=== PATIENT | male | born 1945 | race Caucasian/White ===

== ENCOUNTER 2018-07-09 14:28 | Outpatient (CLI) | payer MEDICARE, OTHER | END 2018-07-09 14:29 | disposition critical access hospital (66) | LOC: EMS 14:28 | PROVIDERS: ATTEND Surgery | DX: R55 Syncope and collapse (principal); R10.9 Unspecified abdominal pain | CPT/HCPCS: A0425; A0427 ==

== ENCOUNTER 2018-07-09 14:44 | Inpatient (IN) | payer MEDICARE, OTHER ==
[2018-07-09] MEDS ORDERED: SODIUM CHLORIDE 0.9% 1,000 ML IV ONE (14:52)
--- NOTE | 2018-07-09 14:57 | ED Physician Documentation ---
PD HPI SYNCOPE - Stated complaint Stated Complaint: SYNCOPE - Chief complaint Chief Complaint: Abd Pain - History obtained from History obtained from: Patient, EMS - History of Present Illness Witnessed: Witnessed (72-year-old gentleman with atrial fibrillation on warfarin who works at [employer]. Reportedly he started to slur his words and then had 2 minutes of syncope. He scratched his abdominal wall and hand. He does not remember any of this. He was brought in by ambulance. On my evaluation his complaints include lower abdominal cramping which is severe and if he feeling of needing to have And imminent bowel movements. He denies chest pain or trouble breathing.) Review of Systems Ten Systems: 10 systems reviewed and negative Constitutional: denies: Fever, Chills Ears: denies: Loss of hearing, Ear pain Nose: denies: Rhinorrhea / runny nose, Congestion Throat: denies: Sore throat Cardiac: denies: Chest pain / pressure, Palpitations Respiratory: denies: Dyspnea PD PAST MEDICAL HISTORY - Past Medical History Past Medical History: Yes Cardiovascular: Hypertension, Atrial fibrillation Neuro: TIA - Present Medications Home Medications: Ambulatory Orders Medication Instructions Recorded Confirmed Fluticasone Propionate 07/09/18 Lisinopril 20 mg PO DAILY 07/09/18 07/09/18 Warfarin [Coumadin] 07/09/18 - Allergies Allergies/Adverse Reactions: Allergies Allergy/AdvReac Type Severity Reaction Status Date / Time No Known Drug Allergies Allergy Verified 07/09/18 14:51 - Living Situation Living Situation: reports: With spouse/s.o. - Social History Does the pt smoke?: No Does the pt drink ETOH?: No Does the pt have substance abuse?: No - Family History Family history: reports: Non contributory PD ED PE NORMAL - Vitals Vital signs reviewed: Yes - General General: Alert and oriented X 3, Other (He is pale, sweaty, and ill-appearing) - HEENT HEENT: PERRL, EOMI - Neck Neck: Supple, no meningeal sign, No bony TTP - Cardiac Cardiac: RRR, No murmur, Strong equal pulses (Equal femoral pulses, equal radial pulses and roughly equivalent upper extremity blood pressures per the nurse.) - Respiratory Respiratory: No respiratory distress, Clear bilaterally - Abdomen Abdomen: Normal bowel sounds, Soft, Non tender, Other (Bedside ultrasound demonstrates no clear AAA.) - Rectal Rectal: Other (Had lrg BM here about 1525, brown, trace guaiac positive (not strong), QC pass) - Back Back: No CVA TTP, No spinal TTP - Extremities Extremities: No edema, No calf tenderness / cord - Neuro Neuro: Alert and oriented X 3, Normal speech - Psych Psych: Normal mood, Normal affect Results - Vitals Vitals: Vital Signs - 24 hr 07/09/18 07/09/18 07/09/18 14:47 14:51 15:04 Temperature 36.5 C Heart Rate 66 64 Respiratory 18 20 Rate Blood Pressure 118/70 133/73 H 117/60 O2 Saturation 93 95 07/09/18 07/09/18 07/09/18 15:30 16:46 17:00 Temperature Heart Rate 64 70 67 Respiratory 17 18 18 Rate Blood Pressure 131/82 H 147/91 H 120/53 L O2 Saturation 99 99 98 07/09/18 07/09/18 07/09/18 17:15 17:27 17:30 Temperature 37.5 C 37.5 C 37.5 C Heart Rate 63 95 65 Respiratory 20 20 17 Rate Blood Pressure 148/81 H 143/79 H 142/81 H O2 Saturation 100 07/09/18 17:35 Temperature 37.3 C Heart Rate 65 Respiratory 17 Rate Blood Pressure 142/81 H O2 Saturation Oxygen O2 Source Nasal cannula Oxygen Flow Rate 4 - EKG (time done) 1451 Rate: Rate (enter#) (60) Rhythm: NSR Max: Normal Intervals: Normal RI QRS: Normal Ischemia: Non specific changes Compare to prior EKG: Old EKG unavailable Computer interpretation: Agree with computer - Labs Labs: Laboratory Tests 07/09/18 07/09/18 07/09/18 14:55 14:55 14:55 WBC 7.6 RBC 4.61 L Hgb 14.8 Hct 44.1 MCV 95.7 H MCH 32.0 H MCHC 33.5 RDW 13.2 Plt Count 196 MPV 8.2 Neut # (Auto) 3.9 Lymph # (Auto) 2.7 [place] # (Auto) 0.6 Eos # (Auto) 0.3 Baso # (Auto) 0.1 Absolute Nucleated RBC 0.00 Nucleated RBC % 0.0 PT 29.0 H INR 2.6 H APTT 22.2 L Sodium 137 Potassium 3.7 Chloride 104 Carbon Dioxide 21 Anion Gap 12.0 BUN 22 H Creatinine 0.9 Estimated GFR (MDRD) 83 L Glucose 143 H Lactic Acid Calcium 9.4 Total Bilirubin 1.3 H AST 24 ALT 21 Alkaline Phosphatase 68 Total Creatine Kinase 97 CK-MB (CK-2) Troponin I Total Protein 7.3 Albumin 4.3 Globulin 3.0 Albumin/Globulin Ratio 1.4 Lipase 24 Ethyl Alcohol < 5.0 Blood Type Blood Type Recheck Antibody Screen 07/09/18 07/09/18 07/09/18 14:55 14:55 15:09 WBC RBC Hgb Hct MCV MCH MCHC RDW Plt Count MPV Neut # (Auto) Lymph # (Auto) [place] # (Auto) Eos # (Auto) Baso # (Auto) Absolute Nucleated RBC Nucleated RBC % PT INR APTT Sodium Potassium Chloride Carbon Dioxide Anion Gap BUN Creatinine Estimated GFR (MDRD) Glucose Lactic Acid 1.7 Calcium Total Bilirubin AST ALT Alkaline Phosphatase Total Creatine Kinase CK-MB (CK-2) 2.7 Troponin I < 0.04 Total Protein Albumin Globulin Albumin/Globulin Ratio Lipase Ethyl Alcohol Blood Type O POSITIVE Blood Type Recheck Antibody Screen NEGATIVE 07/09/18 07/09/18 17:03 17:03 WBC RBC Hgb 14.4 Hct 43.5 MCV MCH MCHC RDW Plt Count MPV Neut # (Auto) Lymph # (Auto) [place] # (Auto) Eos # (Auto) Baso # (Auto) Absolute Nucleated RBC Nucleated RBC % PT INR APTT Sodium Potassium Chloride Carbon Dioxide Anion Gap BUN Creatinine Estimated GFR (MDRD) Glucose Lactic Acid Calcium Total Bilirubin AST ALT Alkaline Phosphatase Total Creatine Kinase CK-MB (CK-2) Troponin I Total Protein Albumin Globulin Albumin/Globulin Ratio Lipase Ethyl Alcohol Blood Type Blood Type Recheck O POSITIVE Antibody Screen - Rads (name of study) CT Head and Angio CHest/Abd Radiology: EMP read contemporaneously (Head is normal, there is a adrenal mass needing follow-up, colonic wall thickening in the sigmoid concerning for diverticulitis and colitis. Patent SMA. Bilateral lower lobe airspace disease, enlarged right hilar lymph node needing follow-up, bilateral pleural plaques.) PD MEDICAL DECISION MAKING - ED course ED course: 72-year-old gentleman presents by ambulance after an episode of syncope. Although his vital signs and initial lab work are reassuring he looks ill, sweaty and has an urge to have a bowel movements. Initial bowel movement was large and brown and slightly guaiac positive but subsequently started to have watery grossly bloody diarrhea. Initial differential diagnosis included ACS, mesenteric ischemia, aortic dissection and AAA. I did not see a AAA on bedside ultrasound. He is therapeutically anticoagulated and FFP was ordered after the grossly bloody bowel movements. Repeat H&H was really not too much different. CT imaging is shown with some incidental findings that were discussed with the family and follow-up necessary but more pertinent was colitis/diverticulitis and pneumonia. He was given Levaquin and Flagyl. Spoke with the on-call surgeon, Dr. Downs and will consult as needed and spoke with Dr. Ott for admission at 6 PM. Departure - Departure Disposition: 66 [facility] DC/Xfer Clinical Impression: Adequate anticoagulation on anticoagulant therapy, Colitis, Acute pneumonia Abdominal pain Qualifiers: Abdominal location: lower abdomen, unspecified Qualified Code(s): R10.30 - Lower abdominal pain, unspecified Syncope Qualifiers: Syncope type: unspecified Qualified Code(s): R55 - Syncope and collapse GI bleed Qualifiers: GI bleed type/associated pathology: unspecified gastrointestinal hemorrhage type Qualified Code(s): K92.2 - Gastrointestinal hemorrhage, unspecified
[2018-07-09] MEDS ORDERED: MORPHINE 2 MG/ML SYRINGE IVP STA (15:01)
[2018-07-09 15:06] LABS: BASOPHILS # (AUTO) 0.1 10^3/uL (0.0-0.1); BASOPHILS % (AUTO) 1.1 %; EOSINOPHILS # (AUTO) 0.3 10^3/uL (0.0-0.7); EOSINOPHILS % (AUTO) 3.6 %; HGB - HEMOGLOBIN 14.8 g/dL (14.0-18.0); LYMPHOCYTES # (AUTO) 2.7 10^3/uL (1.5-3.5); LYMPHOCYTES % (AUTO) 36.3 %; MEAN CORPUSCULAR HGB CONC 33.5 g/dL (32.0-36.0); MEAN CORPUSCULAR VOLUME 95.7 fL (80.0-94.0); MEAN PLATELET VOLUME 8.2 fL (7.4-11.4); MONOCYTES # (AUTO) 0.6 10^3/uL (0.0-1.0); MONOCYTES % (AUTO) 7.4 %; NEUTROPHILS # (AUTO) 3.9 10^3/uL (1.5-6.6); NEUTROPHILS % (AUTO) 51.6 %; PLT - PLATELET COUNT 196 10^3/uL (130-450); RED BLOOD COUNT 4.61 10^6/uL (4.70-6.10); RED CELL DISTRIBUTION WIDTH 13.2 % (12.0-15.0); WHITE BLOOD COUNT 7.6 x10^3/uL (4.8-10.8)
[2018-07-09] MEDS ORDERED: IOVERSOL 320 100 ML VIAL IVP ONE (15:06)
[2018-07-09 15:20] LABS: ALBUMIN 4.3 g/dL (3.2-5.5); ALBUMIN/GLOBULIN RATIO 1.4 (1.0-2.2); ALKALINE PHOSPHATASE 68 IU/L (42-121); ALT ALANINE AMINOTRANSFERASE 21 IU/L (10-60); AST ASPARTATE AMINOTRANSFERASE 24 IU/L (10-42); BILIRUBIN,TOTAL 1.3 mg/dL (0.2-1.0); BUN - BLOOD UREA NITROGEN 22 mg/dL (6-20); CALCIUM 9.4 mg/dL (8.5-10.3); CARBON DIOXIDE - CO2 21 mmol/L (21-32); CHLORIDE 104 mmol/L (101-111); CK- CREATINE KINASE 97 IU/L (22-269); CREATININE 0.9 mg/dL (0.6-1.2); GFR - MDRD 83 (>89); GLUCOSE 143 mg/dL (70-100); LIPASE 24 U/L (22-51); SODIUM 137 mmol/L (135-145); TOTAL PROTEIN 7.3 g/dL (6.7-8.2)
[2018-07-09 15:25] LABS: TROPONIN I < 0.04 ng/mL (<0.49)
--- NOTE | 2018-07-09 15:26 | XRAY Report ---
Reason: syncope Procedure Date: 07/09/2018 Accession Number: [id number] / [id number] Procedure: XR - Chest 1 View X-Ray CPT Code: 73203 FULL RESULT: EXAM: CHEST RADIOGRAPHY EXAM DATE: 07/09/2018 03:17 PM. CLINICAL HISTORY: Syncope. COMPARISON: None. TECHNIQUE: 1 view. FINDINGS: The radiograph is limited by positioning, overlying hardware and rotation. Lungs/Pleura: No focal opacities evident. No pleural effusion. No pneumothorax. Mediastinum: Within exam limitations, the cardiomediastinal contour is normal. Other: None. IMPRESSION: Limited exam with no acute cardiopulmonary abnormality. RADIA
[2018-07-09 15:27] LABS: CREATINE KINASE MB 2.7 ng/mL (0.6-6.3)
[2018-07-09 15:36] LABS: INR 2.6 (0.8-1.2)
[2018-07-09 15:43] LABS: PARTIAL THROMBOPLASTIN TIME 22.2 secs (24.9-33.3)
--- NOTE | 2018-07-09 17:17 | CT Report ---
Reason: Low abd pain, syncope, PE protocol Procedure Date: 07/09/2018 Accession Number: [id number] / [id number] Procedure: CT - ANGIO CHEST W/WO CPT Code: FULL RESULT: EXAM: CT ANGIOGRAM CHEST EXAM DATE: 07/09/2018 04:44 PM. CLINICAL HISTORY: Low abd pain, syncope, PE protocol. COMPARISON: CHEST 1 VIEW 07/09/2018 3:03 PM ABDOMEN/PELVIS ANGIO 07/09/2018 4:25 PM. TECHNIQUE: Routine helical imaging was performed through the chest in the pulmonary arterial phase. IV Contrast: 100 mL Optiray 320. Reconstructions: Coronal 3-D MIP reconstructions.Sagittal and coronal. In accordance with CT protocol optimization, one or more of the following dose reduction techniques were utilized for this exam: automated exposure control, adjustment of mA and/or KV based on patient size, or use of iterative reconstructive technique. FINDINGS: Pulmonary Arteries: Diagnostic quality: Adequate through the segmental arteries. Subsegmental pulmonary arteries are difficult to visualize, particularly in the right lower lobe. No evidence for acute or chronic pulmonary emboli. RV/LV is within normal limits. There is no interventricular septal bowing. There is reflux of contrast material in the IVC. Lungs/Pleura: There is airspace disease in the right lower lobe and to a lesser degree at the posterior left lower lobe without dandy consolidation. No pneumothorax or pleural effusion. There is asymmetric elevation of the right hemidiaphragm. There are bilateral calcified pleural plaques. Mediastinum: Normal heart size. There is a soft tissue nodule posterior to the left pulmonary artery on series 5 image 69 measuring 1.2 x 2 cm. A right hilar lymph node on series 5 image 76 is enlarged measuring 1.4 x 1.8 cm. A left hilar lymph node on series 5 image 85 is borderline enlarged measuring 0.9 x 1.4 cm. Thoracic Aorta: Unremarkable. Upper Abdomen: Described separately. Other: No acute skeletal abnormalities. IMPRESSION: 1. Negative for pulmonary embolism. 2. There is bilateral posterior lower lobe airspace disease, right greater than left, without dandy consolidation. 3. There is an enlarged right hilar lymph node. There is a borderline enlarged left hilar lymph node. There is a soft tissue nodule or possible lymph node posterior to the left pulmonary artery. 4. There are bilateral pleural plaques suggesting that he has asbestos exposure. 5. There is asymmetric elevation of the right hemidiaphragm. RADIA
[2018-07-09 17:21] LABS: HGB - HEMOGLOBIN 14.4 g/dL (14.0-18.0)
--- NOTE | 2018-07-09 17:28 | CT Report ---
Reason: syncope Procedure Date: 07/09/2018 Accession Number: [id number] / [id number] Procedure: CT - HEAD WO CPT Code: FULL RESULT: EXAM: CT HEAD EXAM DATE: 07/09/2018 04:44 PM. CLINICAL HISTORY: Syncope. Pain. COMPARISON: None. TECHNIQUE: Multiaxial CT images were obtained from the foramen magnum to the vertex. Reformats: Sagittal and coronal. IV contrast: None. In accordance with CT protocol optimization, one or more of the following dose reduction techniques were utilized for this exam: automated exposure control, adjustment of mA and/or KV based on patient size, or use of iterative reconstructive technique. FINDINGS: Mild generalized cerebral atrophy with enlargement of the ventricles and sulci. No mass-effect or midline shift. No evidence for edema. No intracranial hemorrhage. Sinuses and Orbits: Imaged paranasal sinuses, orbits, and mastoids show no significant abnormality. Bones: No evidence of fracture or calvarial defect. IMPRESSION: Mild generalized cerebral atrophy. No acute intracranial abnormality seen. RADIA
--- NOTE | 2018-07-09 17:43 | CT Report ---
Reason: Low abd pain, syncope Procedure Date: 07/09/2018 Accession Number: [id number] / [id number] Procedure: CT - ANGIO ABDOMEN/PELVIS W CPT Code: FULL RESULT: EXAM: CT ANGIOGRAM ABDOMEN AND PELVIS WITH CONTRAST EXAM DATE: 07/09/2018 04:44 PM. CLINICAL HISTORY: Low abdominal pain, syncope. COMPARISONS: None. TECHNIQUE: Routine helical CT angiogram imaging was performed through the abdomen and pelvis in the arterial phase. IV contrast: 100 mL Optiray 320. Enteric contrast: No. Reconstructions: Coronal, sagittal, and 3D MIP reconstructions. In accordance with CT protocol optimization, one or more of the following dose reduction techniques were utilized for this exam: automated exposure control, adjustment of mA and/or KV based on patient size, or use of iterative reconstructive technique. FINDINGS: See the separate chest CT report from the same date. Liver: Unremarkable. Gallbladder: Unremarkable. Bile Ducts: Unremarkable. Pancreas: Unremarkable. Spleen: Unremarkable. Adrenals: Left adrenal mass or nodular thickening measuring 1.3 x 1.3 cm. Kidneys: Left lower pole renal cyst measuring 6.3 cm. Bilateral parapelvic renal cysts. No hydronephrosis. Bowel: Fluid is noted in the colon diffusely. Mild sigmoid diverticulosis where there is mild to moderate colonic wall thickening and adjacent stranding concerning for acute diverticulitis. However, more proximal to this, there appears to be mild colonic wall thickening at the descending and sigmoid colon with mild adjacent stranding and acute colitis such as infectious/inflammatory colitis or ischemic colitis are also possible. No evidence for perforation or abscess. No free fluid or free air. No dilated small bowel loops are seen. Normal appendix. Pelvis: The bladder and remaining pelvic organs appear unremarkable. Vasculature: No acute findings. No abdominal aortic aneurysm or dissection. The celiac, superior mesenteric and inferior mesenteric arteries appear patent. Two right renal arteries. Bilateral renal arteries appear patent. Bilateral iliac arteries appear patent. No evidence for hemodynamically significant stenosis. Bones: Mild anterolisthesis of L4 on L5 and L3 on L4. Minimal retrolisthesis of L5 on S1. These could be degenerative. No acute bone findings are seen. IMPRESSION: 1. See the separate chest CT report from the same date. 2. Left adrenal mass or nodular thickening measuring 1.3 cm. Consider a one year follow-up MRI or CT adrenal mass protocol to confirm stability. More immediate workup recommended if there is high risk for malignancy. 3. Fluid is noted diffusely in the colon. Mild sigmoid diverticulosis where there is mild to moderate colonic wall thickening and adjacent stranding concerning for acute diverticulitis. However, more proximal to this, there appears to be mild colonic wall thickening at the descending and sigmoid colon with mild adjacent stranding and acute colitis such as infectious/inflammatory colitis or ischemic colitis are also possible. 4. Patent superior mesenteric artery. See above. RADIA
[2018-07-09] MEDS ORDERED: levoFLOXacin 750 MG/150 ML 750 MG/150 ML BAG IV ONE (17:48)
[2018-07-09] MEDS ORDERED: metroNIDAZOLE 500 MG/100 ML 500 MG/100 ML BAG IV ONE (17:48)
[2018-07-09] MEDS ORDERED: PROCHLORPERAZINE 10 MG/2 ML VIAL IVP PRN (18:20)
[2018-07-09] MEDS ORDERED: ACETAMINOPHEN 325 MG TABLET PO PRN (18:20)
[2018-07-09] MEDS ORDERED: SODIUM CHLORIDE FLUSH 0.9% 10 ML SYRINGE IVP PRN (18:20)
[2018-07-09] MEDS ORDERED: metroNIDAZOLE 500 MG/100 ML 500 MG/100 ML BAG IV SCH (19:00)
[2018-07-09] MEDS: D5NS W/20 MEQ KCL 1,000 ML IV SCH (20:15)
[2018-07-09] MEDS: FAMOTIDINE 20 MG/2 ML VIAL IVP SCH (22:03)
[2018-07-09 23:11] LABS: HGB - HEMOGLOBIN 13.4 g/dL (14.0-18.0)
[2018-07-09 23:26] LABS: INR 2.7 (0.8-1.2); PT - PROTHROMBIN TIME 29.4 secs (9.9-12.6)
--- NOTE | 2018-07-09 23:54 | HISTORY & PHYSICAL EXAMINATION ---
Chief Complaint - Chief Complaint Chief Complaint: abd pain, syncope History of Present Illness - Admitted From Admitted From:: [facility] ED - History Obtained From Records Reviewed: yes History obtained from: patient - History of Present Illness HPI Comment/Other: Patient seen on 07/09/18 at 20:20pm Patient is a 72 y/o male who presented to the ED via EMS after a syncopal episode. He was at work at [employer] when he felt a stomach upset. Shortly after that he felt light-headed. The next thing he knew he was waking up in an ambulance. Yesterday he had no complains or symptoms. In the ED he was experiencing abdominal cramps and felt like he needed to have a bowel movement. He felt better after having a large bowel movement. However he s ubsequently had an episode of bloody diarrhea. Initial hemoglobin was 14.8 and a recheck was 14.4. The patient's vitals remained stable. He had an INR of 2.6. he is on coumadin Currently he denies any chest pain, EMILIANO, fever or chills. Abdominal discomfort persists. He reports intermittent periods of feeling light-headed when he stands up after bending down. It lasts only a few seconds. he does not experience this when going form laying down to sitting, or sitting to standing. The rest of his history is unremarkable History - Past Medical History Cardiovascular: reports: Hypertension Neuro: reports: TIA MRSA Hx?: No - Family & Social History Family History: Mother: Diabetes, Type 2, [place] Family History Comment/Other: father: at 93. Had AAA. mother: [place], DM 2. brother 1: Parkinson's Disease Living arrangement: At home Living Situation: With spouse/s.o. Social History Notes: No tobacco, alcohol or illicit drug use - Substance History Use: Uses substance without health or social issues: NONE - POLST Patient has POLST: No POLST Status: Full Code Meds/Allgy - Home Medications Home Medications: Ambulatory Orders Medication Instructions Recorded Confirmed Fluticasone Propionate 07/09/18 Lisinopril 20 mg PO DAILY 07/09/18 07/09/18 Warfarin [Coumadin] 07/09/18 - Allergies Allergies/Adverse Reactions: Allergies Allergy/AdvReac Type Severity Reaction Status Date / Time No Known Drug Allergies Allergy Verified 07/09/18 14:51 Review of Systems - Constitutional Constitutional: denies: Fever, Chills - Eyes Eyes: denies: Blurred vision, Vision loss, Dipolpia - Ears, Nose & Throat Ears, Nose & Throat: denies: Nasal pain, Nasal discharge, Sore throat, Hoarseness - Cardiovascular Cariovascular: reports: Lightheadedness, Syncope. denies: Irregular heart rate, Chest pain, Edema, Exertional dyspnea - Respiratory Respiratory: denies: Cough, Sputum production, Wheezing, Snoring, Orthopnea, SOB at rest, SOB with exertion - Gastrointestinal Gastrointestinal: reports: Abdominal pain, Diarrhea, Bloody stools. denies: Black stools, Nausea, Vomiting, Coffee grounds emesis, Reflux/heartburn - Genitourinary Genitourinary: denies: Dysuria, Frequency, Urgency, Hematuria - Musculoskeletal Musculoskeletal: denies: Muscle pain, Back pain, Gout, Joint pain - Integumentary Integumentary: denies: Rash, Pruritis, Lesions, Dryness - Neurological Neurological: denies: General weakness, Focal weakness, Headache, Dizziness - Psychiatric Psychiatric: denies: Depression, Anxiety - Endocrine Endocrine: denies: Polyuria, Polydypsia - Hematologic/Lymphatic Hematologic/Lymphatic: denies: Anemia, Bruising, Petechiae Prior Level of Functionality: Is independent of activities of daily living Works at [employer] Exam - Vital Signs Vital Signs: Vital Signs x48h Temp Pulse Pulse Resp BP BP Pulse Ox 07/09/18 20:00 70 C H 70 11 L 145/74 H 96 07/09/18 18:49 37.3 C 65 17 144/80 H 07/09/18 18:33 37.3 C 66 19 147/84 H 07/09/18 18:19 37.3 C 67 16 147/77 H 07/09/18 18:14 37.3 C 66 13 149/74 H 07/09/18 18:00 37.3 C 64 17 149/74 H 07/09/18 17:35 37.3 C 65 17 142/81 H 07/09/18 17:30 37.5 C 65 17 142/81 H 100 07/09/18 17:27 37.5 C 95 20 143/79 H 07/09/18 17:15 37.5 C 63 20 148/81 H 04/24/19 17:00 67 18 120/53 L 98 07/09/18 16:46 70 18 147/91 H 99 - Physical Exam General Appearance: positive: Alert, Mild distress Eyes Bilateral: positive: Normal inspection, PERRL, EOMI ENT: positive: ENT inspection nml, No signs of dehydration Neck: positive: Nml inspection, No JVD, Trachea midline Respiratory: positive: Chest non-tender, No respiratory distress, Breath sounds nml Cardiovascular: positive: Regular rate & rhythm, No murmur Abdomen: positive: No distention, Tenderness (mild discomfort in lower abdomen), Abnml bowel sounds (hyperactive bowel sounds). negative: Guarding, Rebound Rectal: positive: Bloody stool Back: positive: Nml inspection Skin: positive: Color nml, No rash, Warm, Dry Extremities: positive: Nml appearance, No pedal edema Neurologic/Psychiatric: positive: Oriented x3 Conclusion/Plan - Problem List (1) GI bleed Conclusion/Plan: Likely lower GI Bleed Etiology undetermined ? AVM, ?Diverticular Bleed Coumadin held. Monitor INR Patient given FFP. If bleeding persist, will transfuse PRBC and FFP Qualifiers: GI bleed type/associated pathology: unspecified gastrointestinal hemorrhage type Qualified Code(s): K92.2 - Gastrointestinal hemorrhage, unspecified (2) Colitis Conclusion/Plan: Patient given a dose of levaquin and flagyl Will continue flagyl IV fluids at 100ml/hr Clear liquid diet Colitis will need to resolve before potential colonoscopy (3) Syncope Conclusion/Plan: ? Cardiac cause vs vasovagal Patient on telemetry 2D echo ordered Trend troponin Qualifiers: Syncope type: unspecified Qualified Code(s): R55 - Syncope and collapse (4) Hypertension Conclusion/Plan: Currently normotensive Will hold lisinopril in light of bleeding and while actively hydrating patient - Lab Results Fish Bones: 07/10/18 04:20 07/10/18 04:20 Core Measures - Anticipated LOS I expect patient to be DC'd or transferred within 96 hours.: Yes - DVT/VTE - Prophylaxis VTE/DVT Device ordered at admit?: Yes VTE/DVT Prophylaxis med ordered at admit?: No Not Ordered - Medical Reason: Contraindicated (GI bleed)
[2018-07-10] MEDS: metroNIDAZOLE 500 MG/100 ML 500 MG/100 ML BAG IV SCH ×3 (03:12→19:15)
[2018-07-10 05:00] LABS: BASOPHILS # (AUTO) 0.1 10^3/uL (0.0-0.1); BASOPHILS % (AUTO) 0.7 %; LYMPHOCYTES # (AUTO) 0.7 10^3/uL (1.5-3.5); LYMPHOCYTES % (AUTO) 7.7 %; MEAN CORPUSCULAR HEMOGLOBIN 32.5 pg (27.0-31.0); MEAN CORPUSCULAR HGB CONC 33.8 g/dL (32.0-36.0); MEAN CORPUSCULAR VOLUME 96.2 fL (80.0-94.0); MEAN PLATELET VOLUME 8.7 fL (7.4-11.4); MONOCYTES # (AUTO) 0.6 10^3/uL (0.0-1.0); MONOCYTES % (AUTO) 6.6 %; NEUTROPHILS # (AUTO) 8.2 10^3/uL (1.5-6.6); PLT - PLATELET COUNT 162 10^3/uL (130-450); RED BLOOD COUNT 3.99 10^6/uL (4.70-6.10); RED CELL DISTRIBUTION WIDTH 12.8 % (12.0-15.0); WHITE BLOOD COUNT 9.7 x10^3/uL (4.8-10.8)
[2018-07-10 05:04] LABS: INR 3.1 (0.8-1.2)
[2018-07-10 05:07] LABS: CALCIUM 8.4 mg/dL (8.5-10.3); CREATININE 0.7 mg/dL (0.6-1.2)
[2018-07-10] MEDS ORDERED: PHYTONADIONE 10 MG/ML AMP IVP STA (05:21)
[2018-07-10] MEDS: D5NS W/20 MEQ KCL 1,000 ML IV SCH ×2 (07:00→21:54)
[2018-07-10] MEDS: SODIUM CHLORIDE FLUSH 0.9% 10 ML SYRINGE IVP SCH ×3 (08:08→17:00)
[2018-07-10] MEDS: FAMOTIDINE 20 MG/2 ML VIAL IVP SCH ×2 (08:55→21:53)
[2018-07-10] MEDS: POLYETHYLENE GLYCOL 3350 17 GM PACKET PO SCH (08:56)
[2018-07-10] MEDS ORDERED: LISINOPRIL 20 MG TABLET PO SCH (09:00)
--- NOTE | 2018-07-10 09:22 | CONSULTATION NOTE ---
Referring Provider Consult Date: 07/10/18 Chief Complaint - Chief Complaint Chief Complaint: hematochezia History of Present Illness - History of Present Illness HPI Comment/Other: 72 yo man presented to the ER after presyncopal episode at work. Also had large volume bloody BM in ER with abdominal pain. Never had a similar episode. On Coumadin for Afib. Normal cscope a few years ago per pt. Reports pain now resolved. History - Past Medical History Cardiovascular: reports: Hypertension Neuro: reports: TIA MRSA Hx?: No - Family & Social History Family History: Mother: Diabetes, Type 2, [place] Family History Comment/Other: father: at 93. Had AAA. mother: [place], DM 2. brother 1: Parkinson's Disease Living arrangement: At home Living Situation: With spouse/s.o. Social History Notes: No tobacco, alcohol or illicit drug use - Substance History Use: Uses substance without health or social issues: NONE - POLST Patient has POLST: No POLST Status: Full Code Meds/Allgy - Home Medications Home Medications: Ambulatory Orders Medication Instructions Recorded Confirmed Fluticasone Propionate 07/09/18 Lisinopril 20 mg PO DAILY 07/09/18 07/09/18 Warfarin [Coumadin] 07/09/18 - Allergies Allergies/Adverse Reactions: Allergies Allergy/AdvReac Type Severity Reaction Status Date / Time No Known Drug Allergies Allergy Verified 07/09/18 14:51 Review of Systems - Gastrointestinal Gastrointestinal: reports: Abdominal pain Exam - Vital Signs Vital Signs: Vital Signs x48h Temp Pulse Pulse Resp BP BP Pulse Ox 07/10/18 08:00 75 16 130/62 95 07/10/18 07:30 36.8 C 68 16 112/63 07/10/18 07:12 37.0 C 63 15 126/74 07/10/18 07:08 36.9 C 72 13 124/65 07/10/18 05:59 37.3 C 74 18 95 07/10/18 03:47 37.3 C 74 14 134/68 H 95 - Physical Exam General Appearance: positive: No acute distress Eyes Bilateral: positive: Normal inspection ENT: positive: ENT inspection nml Respiratory: positive: Chest non-tender Abdomen: positive: Non-tender Back: positive: Nml inspection Skin: positive: Color nml Extremities: positive: Non-tender Neurologic/Psychiatric: positive: Oriented x3 Conclusion/Plan - Diagnosis Diagnosis: diverticulitis - Plan Plan: Pt has diverticulitis per CT complicated by a transient bleed. He has had no further bleeding episodes since admission and his pain is now resolved. Recommend course of antibiotics and bowel rest. Consider stopping Coumadin. Consider colonoscopy after discharge as outpatient. - Lab Results Fish Bones: 07/10/18 04:20 07/10/18 04:20
--- NOTE | 2018-07-10 10:30 | XRAY Report ---
Reason: F/U bilateral infiltrates Procedure Date: 07/10/2018 Accession Number: [id number] / [id number] Procedure: XR - Chest 1 View X-Ray CPT Code: 92147 FULL RESULT: EXAM: CHEST RADIOGRAPHY EXAM DATE: 07/10/2018 09:04 AM. CLINICAL HISTORY: Followup bilateral infiltrates. COMPARISON: CHEST 1 VIEW 07/09/2018 3:03 PM. CHEST ANGIO 07/09/2018 4:25 PM. TECHNIQUE: 1 view. FINDINGS: Lungs/Pleura: Triangular-shaped consolidation near the right minor fissure appears similar to prior, and correlates to yesterday's CTA. Small amount of previously demonstrated left posterior basal consolidation is occult on the frontal radiograph. Prominent airway thickening is again seen. No sizable pleural effusion or pneumothorax. Mediastinum: Within exam limitations, the cardiomediastinal contour is stable. Other: None. IMPRESSION: Stability. RADIA
[2018-07-10] MEDS: AZITHROMYCIN INJ 500 MG in SODIUM CHLORIDE 0.9% 250 ML IV SCH (11:45)
[2018-07-10] MEDS: cefTRIAXone 1 GM in SODIUM CHLORIDE 0.9% MINIBAG 100 ML IV SCH (13:00)
--- NOTE | 2018-07-10 14:15 | PROVIDER PROGRESS NOTE ---
Assessment/Plan - Problem List (1) Anemia due to GI blood loss Assessment/Plan: Follow CBC q 12h, transfuse if <7 or if develops sx. Will begin oral Iron replacement. (2) GI bleed Qualifiers: GI bleed type/associated pathology: unspecified gastrointestinal hemorrhage type Qualified Code(s): K92.2 - Gastrointestinal hemorrhage, unspecified Assessment/Plan: Etiology is not definite, but presumed to be from colitis/diverticulitis, however another lower GI source (like AVM) cannot be ruled out. He was seen in consult by general surgeon, Dr Downs, who recommended treating the colitis, bowel rest and elective outpatient colonoscopy. (3) Colitis Assessment/Plan: Pt on clear liquid diet. Will advance this as bloody diarrhea and abd pain decrease. Continue iv Flagyl, eventually will transition to po Flagyl. (4) CAP (community acquired pneumonia) Assessment/Plan: A repeat CXR was done to determine if he had atelectasis yesterday, or true infiltrates. The bilateral consolidations are still seen. He got Levaquin in ER, this was stopped due to adding to rising INR. Will start empiric antibiotics for comm acquired pneumonia, using iv Zithromax and iv Ceftriaxone. If he makes sputum, a sputum culture will be sent, was ordered. (5) Adequate anticoagulation on anticoagulant therapy Assessment/Plan: The therapeutic INR was reversed with FFP and repeat FFP and also vit K was ordered. Will follow INR q12h until it is normal. he will not be on anticoagulants again, for stroke prophylaxis in Afib, but will now be advised to take a daily ASA 81 - 325 mg. (6) Syncope Qualifiers: Syncope type: unspecified Qualified Code(s): R55 - Syncope and collapse Assessment/Plan: It appears likely that he had vasovagal syncope from GI motility of bloody diarrhea. His troponins are normal x3, ruling out [place]. His Echo shows a preserved LVEF, and only minimally elevated PA pressuer of 29 mmHg. Will start orthostatic VS checks and increase activity if no orthostasis. (7) Chronic a-fib Assessment/Plan: Pulse is controlled but patient is at rest. Continue telemetry. No anticoagulation as described above. - Current Meds Current Meds: Current Medications Generic Name Dose Route Start Last Admin Trade Name Freq PRN Reason Stop Dose Admin Famotidine 20 mg 07/09/18 21:00 07/10/18 08:55 Pepcid IVP 20 mg BID ALBERTO Administration Potassium Chloride/Dextrose/Sod Cl 1,000 mls @ 100 mls/hr 07/09/18 19:00 07/10/18 13:30 IV 100 mls/hr .Q10H ALBERTO Infusion Metronidazole 500 mg in 100 mls @ 100 mls/hr 07/10/18 03:00 07/10/18 11:45 Flagyl 500 Mg/100 Ml IV Infused Q8H ALBERTO Infusion Azithromycin 500 mg/ Sodium 250 mls @ 250 mls/hr 07/10/18 11:00 07/10/18 12:45 Chloride IV Infused DAILY ALBERTO Infusion Ceftriaxone Sodium 1 gm/ 100 mls @ 200 mls/hr 07/10/18 12:00 07/10/18 13:30 Sodium Chloride IV Infused DAILY ALBERTO Infusion Polyethylene Glycol 17 gm 07/10/18 09:00 07/10/18 08:56 Miralax PO Not Given DAILY ALBERTO Sodium Chloride 10 ml 07/10/18 01:00 07/10/18 08:55 Normal Saline Flush 0.9% IVP 10 ml 0100,0900,1700 ALBERTO Administration - Lab Result Fish Bone Diagrams: 07/10/18 14:11 07/10/18 04:20 - Additional Planning My Orders: My Active Orders 07/09/18 18:20 Activity Orders [RC] Q2HR IO [RC] IOSHIFT Initiate Bowel Care Protocol [RC] .protocol Initiate Line Care Protocol [RC] .protocol Initiate Line Care Protocol [RC] QSHIFT Initiate Personal Care Protoco [RC] .protocol Oxygen Therapy [RC] Routine Telemetry- [RC] Q4HR Vital Signs [RC] Q4H Acetaminophen [Tylenol] 650 mg PO Q4HR PRN Prochlorperazine Inj [Compazine Inj] 10 mg IVP Q6HR PRN Sodium Chloride Flush 0.9% [Normal Saline Flush 0.9%] 10 ml IVP PRN PRN Code Status [OTHERS] Routine Condition of Patient [OTHERS] Routine DVT Prophylaxis [OTHERS] Routine 07/09/18 18:23 Daily Weight [RC] 0600 IV Insert [RC] .ONCE 07/09/18 18:24 MARLENI Bermudez and SCDs [RC] QSHIFT 04/24/19 18:25 General Surgery Consult [CONS] Routine 07/09/18 19:00 D5ns W/20 Meq KCl 1,000 ml IV 100 mls/hr 07/09/18 21:00 Famotidine [Pepcid] 20 mg IVP BID 07/09/18 Dinner Clear Liquid Diet [DIET] 07/10/18 01:00 Sodium Chloride Flush 0.9% [Normal Saline Flush 0.9%] 10 ml IVP 0100,0900,1700 07/10/18 03:00 metroNIDAZOLE 500 MG/100 ML [Flagyl 500 mg/100 ml] 500 mg in 100 ml IV Q8H 07/10/18 08:00 Echo Complete w/Bubble Study [ECHO] Routine 07/10/18 09:00 Polyethylene Glycol 3350 [Miralax] 17 gm PO DAILY 07/10/18 11:00 Azithromycin Inj [Zithromax Inj] 500 mg Sodium Chloride 0.9% [Normal Saline 0.9%] 250 ml IV DAILY 07/10/18 11:14 Orthostatic [Vital Signs - Orthostatic] [RC] DAILY 07/10/18 12:00 cefTRIAXone [Rocephin] 1 gm Sodium Chloride 0.9% Minibag [Normal Saline 0.9% Minibag] 100 ml IV DAILY 07/10/18 14:00 HEMOGLOBIN AND HEMATOCRIT [HEME] Timed PT WITH INR [COAG] Timed 07/11/18 05:00 BMP - BASIC METABOLIC PANEL [CHEM] DAILYLAB CBC - COMP BLD CT W/AUTO DIFF [HEME] DAILYLAB PT WITH INR [COAG] DAILYLAB 07/12/18 05:00 BMP - BASIC METABOLIC PANEL [CHEM] DAILYLAB CBC - COMP BLD CT W/AUTO DIFF [HEME] DAILYLAB PT WITH INR [COAG] DAILYLAB 07/13/18 05:00 BMP - BASIC METABOLIC PANEL [CHEM] DAILYLAB CBC - COMP BLD CT W/AUTO DIFF [HEME] DAILYLAB Subjective - Subjective Patient Reports: Feeling Better Nursing Reports: Other (Had 2 more bloody BMs after got admitted from ER last night, another FFP started for uncorrected morning INR.) Objective Vital Signs: Vital Signs - 24 hr 07/09/18 07/09/18 07/09/18 14:47 14:51 15:04 Temperature 36.5 C Heart Rate 66 64 Heart Rate [ Monitoring electrodes] Heart Rate [ Sitting (After 1 Minute)] Heart Rate [ Standing (After 1 Minute)] Heart Rate [ Supine] Respiratory 18 20 Rate Blood Pressure 118/70 133/73 H 117/60 Blood Pressure [Right Brachial artery] Blood Pressure [Sitting (After 1 Minute)] Blood Pressure [Standing ( After 1 Minute) ] Blood Pressure [Supine] O2 Saturation 93 95 07/09/18 07/09/18 07/09/18 15:30 16:46 17:00 Temperature Heart Rate 64 70 67 Heart Rate [ Monitoring electrodes] Heart Rate [ Sitting (After 1 Minute)] Heart Rate [ Standing (After 1 Minute)] Heart Rate [ Supine] Respiratory 17 18 18 Rate Blood Pressure 131/82 H 147/91 H 120/53 L Blood Pressure [Right Brachial artery] Blood Pressure [Sitting (After 1 Minute)] Blood Pressure [Standing ( After 1 Minute) ] Blood Pressure [Supine] O2 Saturation 99 99 98 07/09/18 07/09/18 07/09/18 17:15 17:27 17:30 Temperature 37.5 C 37.5 C 37.5 C Heart Rate 63 95 65 Heart Rate [ Monitoring electrodes] Heart Rate [ Sitting (After 1 Minute)] Heart Rate [ Standing (After 1 Minute)] Heart Rate [ Supine] Respiratory 20 20 17 Rate Blood Pressure 148/81 H 143/79 H 142/81 H Blood Pressure [Right Brachial artery] Blood Pressure [Sitting (After 1 Minute)] Blood Pressure [Standing ( After 1 Minute) ] Blood Pressure [Supine] O2 Saturation 100 07/09/18 07/09/18 07/09/18 17:35 18:00 18:14 Temperature 37.3 C 37.3 C 37.3 C Heart Rate 65 64 66 Heart Rate [ Monitoring electrodes] Heart Rate [ Sitting (After 1 Minute)] Heart Rate [ Standing (After 1 Minute)] Heart Rate [ Supine] Respiratory 17 17 13 Rate Blood Pressure 142/81 H 149/74 H 149/74 H Blood Pressure [Right Brachial artery] Blood Pressure [Sitting (After 1 Minute)] Blood Pressure [Standing ( After 1 Minute) ] Blood Pressure [Supine] O2 Saturation 07/09/18 07/09/18 07/09/18 18:19 18:33 18:49 Temperature 37.3 C 37.3 C 37.3 C Heart Rate 67 66 65 Heart Rate [ Monitoring electrodes] Heart Rate [ Sitting (After 1 Minute)] Heart Rate [ Standing (After 1 Minute)] Heart Rate [ Supine] Respiratory 16 19 17 Rate Blood Pressure 147/77 H 147/84 H 144/80 H Blood Pressure [Right Brachial artery] Blood Pressure [Sitting (After 1 Minute)] Blood Pressure [Standing ( After 1 Minute) ] Blood Pressure [Supine] O2 Saturation 07/09/18 07/09/18 07/10/18 20:00 23:59 03:47 Temperature 70 C H 37.2 C 37.3 C Heart Rate Heart Rate [ 70 66 74 Monitoring electrodes] Heart Rate [ Sitting (After 1 Minute)] Heart Rate [ Standing (After 1 Minute)] Heart Rate [ Supine] Respiratory 11 L 16 14 Rate Blood Pressure Blood Pressure 145/74 H 132/65 H 134/68 H [Right Brachial artery] Blood Pressure [Sitting (After 1 Minute)] Blood Pressure [Standing ( After 1 Minute) ] Blood Pressure [Supine] O2 Saturation 96 96 95 07/10/18 07/10/18 07/10/18 05:59 07:08 07:12 Temperature 37.3 C 36.9 C 37.0 C Heart Rate 74 72 63 Heart Rate [ Monitoring electrodes] Heart Rate [ Sitting (After 1 Minute)] Heart Rate [ Standing (After 1 Minute)] Heart Rate [ Supine] Respiratory 18 13 15 Rate Blood Pressure 124/65 126/74 Blood Pressure [Right Brachial artery] Blood Pressure [Sitting (After 1 Minute)] Blood Pressure [Standing ( After 1 Minute) ] Blood Pressure [Supine] O2 Saturation 95 07/10/18 07/10/18 07/10/18 07:30 08:00 11:54 Temperature 36.8 C Heart Rate 68 Heart Rate [ 75 Monitoring electrodes] Heart Rate [ 81 Sitting (After 1 Minute)] Heart Rate [ 85 Standing (After 1 Minute)] Heart Rate [ 70 Supine] Respiratory 16 16 Rate Blood Pressure 112/63 Blood Pressure 130/62 [Right Brachial artery] Blood Pressure 132/74 H [Sitting (After 1 Minute)] Blood Pressure 120/80 [Standing ( After 1 Minute) ] Blood Pressure 120/70 [Supine] O2 Saturation 95 07/10/18 12:00 Temperature 98.3 C H Heart Rate Heart Rate [ 65 Monitoring electrodes] Heart Rate [ Sitting (After 1 Minute)] Heart Rate [ Standing (After 1 Minute)] Heart Rate [ Supine] Respiratory 18 Rate Blood Pressure Blood Pressure 117/66 [Right Brachial artery] Blood Pressure [Sitting (After 1 Minute)] Blood Pressure [Standing ( After 1 Minute) ] Blood Pressure [Supine] O2 Saturation 96 Oxygen O2 Source Room air Oxygen Flow Rate 4 I&O (Last 24 Hrs): Intake and Output Totals x24h 07/08/18 07/09/18 07/10/18 23:59 23:59 23:59 Intake Total 1502 2625 Output Total 750 925 Balance 752 1700 General: Oriented x3 HEENT: Mucous membr. moist/pink Neck: Supple Neuro: Alert, Non Focal Cardiovascular: No murmurs Respiratory: No respiratory distress Abdomen: Soft Extremities: No edema - Results Results: Laboratory Results WBC 9.7 x10^3/uL (4.8-10.8) 07/10/18 04:20 RBC 3.99 10^6/uL (4.70-6.10) L 07/10/18 04:20 Hgb 13.0 g/dL (14.0-18.0) L 07/10/18 04:20 Hct 38.3 % (42.0-52.0) L 07/10/18 04:20 MCV 96.2 fL (80.0-94.0) H 07/10/18 04:20 MCH 32.5 pg (27.0-31.0) H 07/10/18 04:20 MCHC 33.8 g/dL (32.0-36.0) 07/10/18 04:20 RDW 12.8 % (12.0-15.0) 07/10/18 04:20 Plt Count 162 10^3/uL (130-450) 07/10/18 04:20 MPV 8.7 fL (7.4-11.4) 07/10/18 04:20 Neut # (Auto) 8.2 10^3/uL (1.5-6.6) H 07/10/18 04:20 Lymph # (Auto) 0.7 10^3/uL (1.5-3.5) L 07/10/18 04:20 [place] # (Auto) 0.6 10^3/uL (0.0-1.0) 07/10/18 04:20 Eos # (Auto) 0.0 10^3/uL (0.0-0.7) 07/10/18 04:20 Baso # (Auto) 0.1 10^3/uL (0.0-0.1) 07/10/18 04:20 Absolute Nucleated RBC 0.00 x10^3/uL 07/10/18 04:20 Nucleated RBC % 0.0 /100WBC 07/10/18 04:20 PT 34.0 secs (9.9-12.6) H 07/10/18 04:20 INR 3.1 (0.8-1.2) H 07/10/18 04:20 APTT 22.2 secs (24.9-33.3) L 07/09/18 14:55 Sodium 137 mmol/L (135-145) 07/10/18 04:20 Potassium 3.9 mmol/L (3.5-5.0) 07/10/18 04:20 Chloride 105 mmol/L (101-111) 07/10/18 04:20 Carbon Dioxide 21 mmol/L (21-32) 07/10/18 04:20 Anion Gap 11.0 (6-13) 07/10/18 04:20 BUN 20 mg/dL (6-20) 07/10/18 04:20 Creatinine 0.7 mg/dL (0.6-1.2) 07/10/18 04:20 Estimated GFR (MDRD) 111 (>89) 07/10/18 04:20 Glucose 134 mg/dL (70-100) H 07/10/18 04:20 Lactic Acid 1.7 mmol/L (0.5-2.2) 07/09/18 15:09 Calcium 8.4 mg/dL (8.5-10.3) L 07/10/18 04:20 Total Bilirubin 1.3 mg/dL (0.2-1.0) H 07/09/18 14:55 AST 24 IU/L (10-42) 07/09/18 14:55 ALT 21 IU/L (10-60) 07/09/18 14:55 Alkaline Phosphatase 68 IU/L (42-121) 07/09/18 14:55 Total Creatine Kinase 97 IU/L (22-269) 07/09/18 14:55 CK-MB (CK-2) 2.7 ng/mL (0.6-6.3) 07/09/18 14:55 Troponin I < 0.04 ng/mL (<0.49) 07/10/18 04:20 Total Protein 7.3 g/dL (6.7-8.2) 07/09/18 14:55 Albumin 4.3 g/dL (3.2-5.5) 07/09/18 14:55 Globulin 3.0 g/dL (2.1-4.2) 07/09/18 14:55 Albumin/Globulin Ratio 1.4 (1.0-2.2) 07/09/18 14:55 Lipase 24 U/L (22-51) 07/09/18 14:55 Nasal Screen MRSA (PCR) NEGATIVE (NEGATIVE) 07/09/18 20:00 Ethyl Alcohol < 5.0 mg/dL 07/09/18 14:55 Blood Type O POSITIVE 07/09/18 14:55 Blood Type Recheck O POSITIVE 07/09/18 17:03 Antibody Screen NEGATIVE 07/09/18 14:55 Crossmatch IS Only See Detail 07/09/18 14:55
[2018-07-10 14:18] LABS: HGB - HEMOGLOBIN 12.4 g/dL (14.0-18.0)
[2018-07-10 14:23] LABS: INR 1.7 (0.8-1.2); PT - PROTHROMBIN TIME 19.4 secs (9.9-12.6)
[2018-07-10] MEDS ORDERED: levoFLOXacin 500 MG/100 ML 500 MG/100 ML BAG IV SCH (16:00)
[2018-07-10] MEDS: FLUTICASONE NASAL SPRAY NAS SCH (16:06)
[2018-07-11] MEDS: SODIUM CHLORIDE FLUSH 0.9% 10 ML SYRINGE IVP SCH ×3 (00:56→16:05)
[2018-07-11] MEDS: metroNIDAZOLE 500 MG/100 ML 500 MG/100 ML BAG IV SCH (02:52)
[2018-07-11 05:26] LABS: BASOPHILS % (AUTO) 0.4 %; EOSINOPHILS # (AUTO) 0.1 10^3/uL (0.0-0.7); EOSINOPHILS % (AUTO) 0.7 %; HGB - HEMOGLOBIN 12.4 g/dL (14.0-18.0); LYMPHOCYTES % (AUTO) 9.4 %; MEAN CORPUSCULAR HEMOGLOBIN 32.4 pg (27.0-31.0); MEAN CORPUSCULAR HGB CONC 33.5 g/dL (32.0-36.0); MEAN CORPUSCULAR VOLUME 96.6 fL (80.0-94.0); MEAN PLATELET VOLUME 8.6 fL (7.4-11.4); MONOCYTES # (AUTO) 0.7 10^3/uL (0.0-1.0); MONOCYTES % (AUTO) 7.3 %; NEUTROPHILS # (AUTO) 8.5 10^3/uL (1.5-6.6); NEUTROPHILS % (AUTO) 82.2 %; PLT - PLATELET COUNT 133 10^3/uL (130-450); RED BLOOD COUNT 3.83 10^6/uL (4.70-6.10); RED CELL DISTRIBUTION WIDTH 12.9 % (12.0-15.0); WHITE BLOOD COUNT 10.3 x10^3/uL (4.8-10.8)
[2018-07-11 05:30] LABS: CALCIUM 8.2 mg/dL (8.5-10.3); CREATININE 0.7 mg/dL (0.6-1.2)
[2018-07-11 05:36] LABS: INR 1.4 (0.8-1.2); PT - PROTHROMBIN TIME 15.8 secs (9.9-12.6)
[2018-07-11] MEDS: D5NS W/20 MEQ KCL 1,000 ML IV SCH ×2 (09:22→12:13)
[2018-07-11] MEDS: AZITHROMYCIN INJ 500 MG in SODIUM CHLORIDE 0.9% 250 ML IV SCH (09:23)
[2018-07-11] MEDS: FLUTICASONE NASAL SPRAY NAS SCH (09:23)
[2018-07-11] MEDS: FAMOTIDINE 20 MG/2 ML VIAL IVP SCH ×2 (09:24→20:32)
[2018-07-11] MEDS: POLYETHYLENE GLYCOL 3350 17 GM PACKET PO SCH (09:24)
[2018-07-11] MEDS: cefTRIAXone 1 GM in SODIUM CHLORIDE 0.9% MINIBAG 100 ML IV SCH (10:31)
[2018-07-11 11:07] LABS: BILIRUBIN,URINE NEGATIVE (NEGATIVE); GLUCOSE, URINE (UA) NEGATIVE (NEGATIVE); KETONES,URINE (UA) NEGATIVE (NEGATIVE); LEUKOCYTE ESTERASE, URINE NEGATIVE (NEGATIVE); NITRITE,URINE NEGATIVE (NEGATIVE); OCCULT BLOOD,URINE NEGATIVE (NEGATIVE); PROTEIN,URINE NEGATIVE (NEGATIVE); UROBILINOGEN,URINE 0.2 (NORMAL) E.U./dL (NORMAL)
[2018-07-11 11:13] LABS: CLARITY,URINE CLEAR (CLEAR)
[2018-07-11 11:25] LABS: BACTERIA,URINE Rare /HPF (None Seen); MUCUS,URINE Few Strands; RBC,URINE 0-5 /HPF (0-5); SQUAMOUS EPITHELIAL CELL,UR NONE SEEN (<= Few)
[2018-07-11] MEDS: metroNIDAZOLE 250 MG TABLET PO SCH ×2 (12:13→20:32)
--- NOTE | 2018-07-11 14:16 | PROVIDER PROGRESS NOTE ---
Assessment/Plan - Problem List (1) Anemia due to GI blood loss Assessment/Plan: H/H have stabilized at 12.4 for 2 days. No further bloody BMs, as well. Po Iron replacement planned. Follow CBC daily [facility]. (2) GI bleed Qualifiers: GI bleed type/associated pathology: unspecified gastrointestinal hemorrhage type Qualified Code(s): K92.2 - Gastrointestinal hemorrhage, unspecified (3) Colitis Assessment/Plan: Advancing diet, since his abdominal sx have resolved, to assess if there is worsening diarrhea or pain. No fiber planned. Will transition to po Flagyl as well. Poss [facility] tomorrow. (4) CAP (community acquired pneumonia) Assessment/Plan: Will transition to po antibiotics and plan a 7 day course. Since he has minimal sx, I am concerned that he had aspiration PNA, and discussed his sleep habits: he describes insomia/ short sleep of 3-4 hours per night for all his adult life. I rec he have a sleep study as an outpt. (5) Adequate anticoagulation on anticoagulant therapy Assessment/Plan: His therapeutic INR was reversed with FFP and vit K due to bloody diarrhea. He will need to be off anticoagulants, at least until after an elective outpatient colonoscopy to determine if a bleeding source can be defined and reversed, then a Cardiology appointment to decide if he should now be on lifelong ASA or resume anticoagulation. This was discussed at length with the patient, and daughter at bedside, and all their questions were answered to their satisfaction. (6) Syncope Qualifiers: Syncope type: unspecified Qualified Code(s): R55 - Syncope and collapse Assessment/Plan: Presumed vasovagal from GI blood loss diarrhea. No orthostasis here. Will liberalize his activity, assess for any sx with ambulation. (7) Chronic a-fib Assessment/Plan: Heart rate has been stable. The decision about using anticoagulant vs anti-platelet agent is as described above. - Current Meds Current Meds: Current Medications Generic Name Dose Route Start Last Admin Trade Name Freq PRN Reason Stop Dose Admin Famotidine 20 mg 07/09/18 21:00 07/11/18 09:24 Pepcid IVP 20 mg BID ALBERTO Administration Fluticasone Propionate 1 sprays 07/10/18 15:43 07/11/18 09:23 Flonase KARIS 1 spr DAILY ALBERTO Administration Potassium Chloride/Dextrose/Sod Cl 1,000 mls @ 40 mls/hr 07/11/18 11:34 07/11/18 12:13 IV 40 mls/hr .Q25H ALBERTO Administration Metronidazole 500 mg 07/11/18 12:00 07/11/18 12:13 Flagyl PO 500 mg Q8H ALBERTO Administration Polyethylene Glycol 17 gm 07/10/18 09:00 07/11/18 09:24 Miralax PO Not Given DAILY ALBERTO Sodium Chloride 10 ml 07/10/18 01:00 07/11/18 09:24 Normal Saline Flush 0.9% IVP 10 ml 0100,0900,1700 ALBERTO Administration - Lab Result Fish Bone Diagrams: 07/11/18 05:00 07/11/18 05:00 - Additional Planning My Orders: My Active Orders 07/10/18 15:43 Fluticasone [Flonase] 1 sprays KARIS DAILY 07/11/18 09:20 CUL, RESPIRATORY [RM] Urgent 07/11/18 11:34 D5ns W/20 Meq KCl 1,000 ml IV 40 mls/hr 07/11/18 12:00 metroNIDAZOLE [Flagyl] 500 mg PO Q8H 07/11/18 Lunch DIET [Dysphagia Puree Diet] [DIET] 07/12/18 05:00 BMP - BASIC METABOLIC PANEL [CHEM] DAILYLAB CBC - COMP BLD CT W/AUTO DIFF [HEME] DAILYLAB PT WITH INR [COAG] DAILYLAB 07/12/18 09:00 Azithromycin [Zithromax] 500 mg PO DAILY 07/13/18 05:00 BMP - BASIC METABOLIC PANEL [CHEM] DAILYLAB CBC - COMP BLD CT W/AUTO DIFF [HEME] DAILYLAB Subjective - Subjective Patient Reports: Feeling Better, Resting Comfortably Nursing Reports: Other (Scant blood-tinged BM today, no diarrhea.) Objective Vital Signs: Vital Signs - 24 hr 07/10/18 07/10/18 07/11/18 16:00 21:22 01:00 Temperature 36.7 C 36.6 C 37.3 C Heart Rate [ 63 63 Brachial] Heart Rate [ 63 Monitoring electrodes] Heart Rate [ Sitting (After 1 Minute)] Heart Rate [ Standing (After 1 Minute)] Heart Rate [ Supine] Respiratory 15 16 18 Rate Blood Pressure 129/61 111/68 117/64 [Right Brachial artery] Blood Pressure [Sitting (After 1 Minute)] Blood Pressure [Standing ( After 1 Minute) ] Blood Pressure [Supine] O2 Saturation 96 97 94 07/11/18 07/11/18 07/11/18 05:40 08:57 08:58 Temperature 37 C 37.2 C Heart Rate [ 64 60 Brachial] Heart Rate [ Monitoring electrodes] Heart Rate [ 61 Sitting (After 1 Minute)] Heart Rate [ 71 Standing (After 1 Minute)] Heart Rate [ 60 Supine] Respiratory 18 20 Rate Blood Pressure 136/63 H 128/65 [Right Brachial artery] Blood Pressure 121/57 L [Sitting (After 1 Minute)] Blood Pressure 126/65 [Standing ( After 1 Minute) ] Blood Pressure 128/65 [Supine] O2 Saturation 95 96 07/11/18 13:00 Temperature 36.4 C L Heart Rate [ 77 Brachial] Heart Rate [ Monitoring electrodes] Heart Rate [ Sitting (After 1 Minute)] Heart Rate [ Standing (After 1 Minute)] Heart Rate [ Supine] Respiratory 18 Rate Blood Pressure 131/59 H [Right Brachial artery] Blood Pressure [Sitting (After 1 Minute)] Blood Pressure [Standing ( After 1 Minute) ] Blood Pressure [Supine] O2 Saturation 97 Oxygen O2 Source Room air Oxygen Flow Rate 4 I&O (Last 24 Hrs): Intake and Output Totals x24h 07/09/18 07/10/18 07/11/18 23:59 23:59 23:59 Intake Total 1502 3500 2230 Output Total 750 925 950 Balance 752 2575 1280 General: Alert, Oriented x3 HEENT: Mucous membr. moist/pink Neck: Supple, No JVD Neuro: Non Focal Cardiovascular: Regular rate, No murmurs Respiratory: No respiratory distress, Breath sounds nml Abdomen: Normal bowel sounds, Soft, No tenderness Extremities: No edema - Results Results: Laboratory Results WBC 10.3 x10^3/uL (4.8-10.8) 07/11/18 05:00 RBC 3.83 10^6/uL (4.70-6.10) L 07/11/18 05:00 Hgb 12.4 g/dL (14.0-18.0) L 07/11/18 05:00 Hct 37.0 % (42.0-52.0) L 07/11/18 05:00 MCV 96.6 fL (80.0-94.0) H 07/11/18 05:00 MCH 32.4 pg (27.0-31.0) H 07/11/18 05:00 MCHC 33.5 g/dL (32.0-36.0) 07/11/18 05:00 RDW 12.9 % (12.0-15.0) 07/11/18 05:00 Plt Count 133 10^3/uL (130-450) 07/11/18 05:00 MPV 8.6 fL (7.4-11.4) 07/11/18 05:00 Neut # (Auto) 8.5 10^3/uL (1.5-6.6) H 07/11/18 05:00 Lymph # (Auto) 1.0 10^3/uL (1.5-3.5) L 07/11/18 05:00 [place] # (Auto) 0.7 10^3/uL (0.0-1.0) 07/11/18 05:00 Eos # (Auto) 0.1 10^3/uL (0.0-0.7) 07/11/18 05:00 Baso # (Auto) 0.0 10^3/uL (0.0-0.1) 07/11/18 05:00 Absolute Nucleated RBC 0.00 x10^3/uL 07/11/18 05:00 Nucleated RBC % 0.0 /100WBC 07/11/18 05:00 PT 15.8 secs (9.9-12.6) H 07/11/18 05:00 INR 1.4 (0.8-1.2) H 07/11/18 05:00 APTT 22.2 secs (24.9-33.3) L 07/09/18 14:55 Sodium 141 mmol/L (135-145) 07/11/18 05:00 Potassium 3.7 mmol/L (3.5-5.0) 07/11/18 05:00 Chloride 111 mmol/L (101-111) 07/11/18 05:00 Carbon Dioxide 24 mmol/L (21-32) 07/11/18 05:00 Anion Gap 6.0 (6-13) 07/11/18 05:00 BUN 10 mg/dL (6-20) 07/11/18 05:00 Creatinine 0.7 mg/dL (0.6-1.2) 07/11/18 05:00 Estimated GFR (MDRD) 111 (>89) 07/11/18 05:00 Glucose 129 mg/dL (70-100) H 07/11/18 05:00 Lactic Acid 1.7 mmol/L (0.5-2.2) 07/09/18 15:09 Calcium 8.2 mg/dL (8.5-10.3) L 07/11/18 05:00 Total Bilirubin 1.3 mg/dL (0.2-1.0) H 07/09/18 14:55 AST 24 IU/L (10-42) 07/09/18 14:55 ALT 21 IU/L (10-60) 07/09/18 14:55 Alkaline Phosphatase 68 IU/L (42-121) 07/09/18 14:55 Total Creatine Kinase 97 IU/L (22-269) 07/09/18 14:55 CK-MB (CK-2) 2.7 ng/mL (0.6-6.3) 07/09/18 14:55 Troponin I < 0.04 ng/mL (<0.49) 07/10/18 04:20 Total Protein 7.3 g/dL (6.7-8.2) 07/09/18 14:55 Albumin 4.3 g/dL (3.2-5.5) 07/09/18 14:55 Globulin 3.0 g/dL (2.1-4.2) 07/09/18 14:55 Albumin/Globulin Ratio 1.4 (1.0-2.2) 07/09/18 14:55 Lipase 24 U/L (22-51) 07/09/18 14:55 Urine Color DARK YELLOW 07/11/18 08:45 Urine Clarity CLEAR (CLEAR) 07/11/18 08:45 Urine pH 6.0 PH (5.0-7.5) 07/11/18 08:45 Ur Specific [place] 1.010 (1.002-1.030) 07/11/18 08:45 Urine Protein NEGATIVE mg/dL (NEGATIVE) 07/11/18 08:45 Urine Glucose (UA) NEGATIVE mg/dL (NEGATIVE) 07/11/18 08:45 Urine Ketones NEGATIVE mg/dL (NEGATIVE) 07/11/18 08:45 Urine Occult Blood NEGATIVE (NEGATIVE) 07/11/18 08:45 Urine Nitrite NEGATIVE (NEGATIVE) 07/11/18 08:45 Urine Bilirubin NEGATIVE (NEGATIVE) 07/11/18 08:45 Urine Urobilinogen 0.2 (NORMAL) E.U./dL (NORMAL) 07/11/18 08:45 Ur Leukocyte Esterase NEGATIVE (NEGATIVE) 07/11/18 08:45 Urine RBC 0-5 /HPF (0-5) 07/11/18 08:45 Urine WBC 0-3 /HPF (0-3) 07/11/18 08:45 Ur Squamous Epith Cells NONE SEEN (<= Few) 07/11/18 08:45 Urine Bacteria Rare /HPF (None Seen) 07/11/18 08:45 Urine Mucus Few Strands 07/11/18 08:45 Urine Culture Comments NOT INDICATED 07/11/18 08:45 Nasal Screen MRSA (PCR) NEGATIVE (NEGATIVE) 07/09/18 20:00 Ethyl Alcohol < 5.0 mg/dL 07/09/18 14:55 Blood Type O POSITIVE 07/09/18 14:55 Blood Type Recheck O POSITIVE 07/09/18 17:03 Antibody Screen NEGATIVE 07/09/18 14:55 Crossmatch IS Only See Detail 07/09/18 14:55
[2018-07-12] MEDS: SODIUM CHLORIDE FLUSH 0.9% 10 ML SYRINGE IVP SCH ×2 (00:34→09:16)
[2018-07-12] MEDS: metroNIDAZOLE 250 MG TABLET PO SCH (04:58)
[2018-07-12] MEDS: D5NS W/20 MEQ KCL 1,000 ML IV SCH (05:05)
[2018-07-12 07:00] LABS: BASOPHILS # (AUTO) 0.1 10^3/uL (0.0-0.1); BASOPHILS % (AUTO) 0.7 %; EOSINOPHILS # (AUTO) 0.1 10^3/uL (0.0-0.7); EOSINOPHILS % (AUTO) 1.2 %; HGB - HEMOGLOBIN 13.1 g/dL (14.0-18.0); LYMPHOCYTES # (AUTO) 1.4 10^3/uL (1.5-3.5); LYMPHOCYTES % (AUTO) 13.2 %; MEAN CORPUSCULAR HEMOGLOBIN 32.4 pg (27.0-31.0); MEAN CORPUSCULAR HGB CONC 33.6 g/dL (32.0-36.0); MEAN CORPUSCULAR VOLUME 96.6 fL (80.0-94.0); MEAN PLATELET VOLUME 8.9 fL (7.4-11.4); MONOCYTES # (AUTO) 0.7 10^3/uL (0.0-1.0); MONOCYTES % (AUTO) 6.7 %; NEUTROPHILS # (AUTO) 8.2 10^3/uL (1.5-6.6); NEUTROPHILS % (AUTO) 78.2 %; PLT - PLATELET COUNT 146 10^3/uL (130-450); RED BLOOD COUNT 4.02 10^6/uL (4.70-6.10); RED CELL DISTRIBUTION WIDTH 13.3 % (12.0-15.0); WHITE BLOOD COUNT 10.6 x10^3/uL (4.8-10.8)
[2018-07-12 07:10] LABS: CALCIUM 8.3 mg/dL (8.5-10.3); CREATININE 0.7 mg/dL (0.6-1.2)
[2018-07-12 07:11] LABS: INR 1.3 (0.8-1.2); PT - PROTHROMBIN TIME 14.9 secs (9.9-12.6)
[2018-07-12 07:41] VITALS: BP 121/67
--- NOTE | 2018-07-12 07:52 | Discharge Plan ---
Discharge Plan Disposition: Home, Self Care Condition: Stable Prescriptions: Aspirin [Aspirin EC] 81 mg PO DAILY #30 tablet. Azithromycin [Zithromax] 500 mg PO DAILY #6 Ferrous Gluconate [Iron] 240 mg PO DAILY #30 tablet Metronidazole [Flagyl] 500 mg PO TID #20 tablet Diet: Regular Activity Restrictions: Activity as Tolerated Shower Restrictions: No Driving Restrictions: Yes (See your PCP to be cleared to resume driving and return to work.) Instruction Topics: Pneumonia, Syncope Tx Prevent, Colitis Ulcerative Lifestyle, Aspiration About Ch, ED Syncope Vasovagal Additional Instructions or Follow Up instructions: You were admitted after fainting, which was felt to be from "Vasovagal Syncope" related to gastro-intestinal blood loss causing diarrhea. We found that you have colitis and a pneumonia. Your blood thinner was stopped and you should remain off that, until advised to restart it, if ever. Now start taking 1 baby aspirin daily. Start taking daily Iron supplements, to rebuild your blood supply. Finish the antibiotic for the colitis and adjust your diet to low-fiber diet. Also, finish the antibiotic for the pneumonia. You also do not need to take the Lisinopril for high blood pressure now, since your BP is low-normal currently. An excessive drop in blood pressure may have also contributed to the fainting. See a [facility] surgeon for an outpatient colonoscopy, call for an appointment. See your PCP this upcoming week to be cleared for returning to work and to resume driving. If you have new or worsening symptoms, call your PCP or come to the ER. No Smoking: If you smoke, Please STOP! Call for help. Follow-up with: Vishal Lebron MD [Primary Care Provider] -
[2018-07-12] MEDS ORDERED: FERROUS GLUCONATE 324 MG TABLET PO SCH (08:00)
[2018-07-12] MEDS ORDERED: AZITHROMYCIN 250 MG TABLET PO SCH (09:00)
[2018-07-12] MEDS: FAMOTIDINE 20 MG/2 ML VIAL IVP SCH (09:15)
[2018-07-12] MEDS: FLUTICASONE NASAL SPRAY NAS SCH (09:15)
[2018-07-12] MEDS: POLYETHYLENE GLYCOL 3350 17 GM PACKET PO SCH (09:16)
--- NOTE | 2018-07-12 19:10 | DISCHARGE SUMMARY ---
Physician: Erika Ott MD DATE OF ADMISSION: 07/09/2018 DATE OF DISCHARGE: 07/12/2018 HISTORY OF PRESENT ILLNESS: This is a 72-year-old white male with a history of chronic atrial fibrillation, on Coumadin (he was on Xarelto in the past, but it was too expensive, costing $15 per tablet), he has a history of having a colonoscopy about 4 years ago, which was apparently normal. The patient presented after developing lightheadedness and had witnessed syncope while he was at work at [employer]. He was brought in by ambulance from there. The report of the ambulance shows that he had a blood pressure of 91/45, pulse of 74, saturation of 95%, and serum glucose of 118. He does not remember the event. In the emergency room, he had new complaints of needing to have a bowel movement and was noted to have a normal bowel movement, followed by 2 very large and bloody loose bowel movements. He was admitted for management of syncope and gastrointestinal blood loss, diarrhea. His workup in the emergency room with abdominal CT showed that he had diverticulitis and colitis. HOSPITAL COURSE AND DISCHARGE DIAGNOSES 1. Anemia due to gastrointestinal blood loss. The patient's first hemoglobin was 14.8, which dropped down to 14.4 just 3 hours later. The hemoglobin was followed every 12 hours and continued to drop to 13.4, 13.0, and was 12.4 by the second day of hospitalization. He had several more bloody bowel movements, and then this stopped, when his INR was corrected (see below). His last 2 days here revealed a stable hemoglobin of 12.4. He was started on oral iron replacement and discharged with this. 2. Gastrointestinal bleed. The source was presumed to be from his diverticulitis or colitis; however, he did not have a colonoscopy. There was a surgical consult done by Dr. Downs, who recommended outpatient colonoscopy to be done electively. On his final day and a half here, there were no further bowel movements at all. 3. Colitis. The abdominal CT was read as having mild sigmoid diverticulosis and [id number] colonic wall thickening with stranding, concerning for acute diverticulitis and mild colonic wall thickening at the descending and sigmoid colon with mild stranding and acute colitis possible. He had a patent superior mesenteric artery. He had a left adrenal mass or nodular thickening, measuring 1.3 cm, and this was advised to have followup imaging at 1 year. The patient had bowel rest with n.p.o. status, then once his bowel urges and diarrhea decreased, his diet was advanced to liquids, then pureed diet, and then eventually a regular diet, but low fiber, and he was advised to continue this at home. He was also started on IV Flagyl, and this was transitioned to p.o. Flagyl at the time of discharge to finish a 10-day course. 4. Community-acquired pneumonia. The other possibility is that he suffered aspiration during the time of his syncopal event. His ER-ordered abdominal CT revealed bilateral infiltrates at the lung bases; therefore, he underwent chest x-ray to confirm this, and it was confirmed. He was put on empiric IV Ceftriaxone and IV Zithromax, and transitioned to p.o. Zithromax to complete 3 more days. 5. Adequate anticoagulation on anticoagulant therapy. The patient's admission INR was in a therapeutic range of 2.6; however, his next blood checks showed increase to 2.7, then 3.1, presumably from antibiotics that were started. His INR was reversed because of the ongoing bloody diarrhea, using several units of FFP and vitamin K x1. By late 07/10/2018, the INR was 1.7, the following day 1.4, and at the day of discharge, 1.3. The patient was advised to stop Coumadin entirely until he has colonoscopy, and if a bleeding source can be definitely found and eradicated, this could be resumed. He was put on baby aspirin daily as his stroke prophylaxis, since he has chronic atrial fibrillation. 6. Syncope. The patient underwent a head CT in the ER, which was within normal limits. He did not require fluids or blood transfusion, having stable vital signs documented in the ER. Orthostatic checks were done every morning, and these were normal. His home Lisinopril dose, however, was not used here and recommended to be stopped, since he ran normal blood pressures without being on Lisinopril. The home Lisinopril dose could have also added to his syncopal event. 7. Chronic atrial fibrillation. The heart rate was stable while here, despite being on no heart rate-controlling medications. We had several discussions about stroke prophylaxis, anticoagulant choice, anticoagulant use versus aspirin use. He was advised to have his colonoscopy, and have followup with his Renal Nurse, for determination of choice of medication. LABS AND IMAGING: Reviewed and summarized above. ALLERGIES: NONE. MEDICATIONS AT THE TIME OF DISCHARGE 1. Fluticasone nasal spray as before admission. 2. Baby aspirin daily. 3. Zithromax 500 mg daily for 3 days. 4. Ferrous gluconate 240 mg daily for a month. 5. Flagyl 500 mg t.i.d. for 7 more days. He was advised to stop his Lisinopril and Coumadin. CONDITION AT DISCHARGE: Stable. PHYSICAL EXAMINATION VITAL SIGNS: Blood pressure 128/74, pulse 62-79 in AFib, afebrile, room air saturation 93%. HEENT: Unremarkable NECK: Without JVD or carotid bruits. CHEST: Clear. HEART: Heart sounds are normal, except irregular. ABDOMEN: Soft, nontender with normal bowel sounds. No organomegaly. EXTREMITIES: No clubbing, cyanosis, or edema. NEUROLOGIC: Intact. CODE STATUS: FULL CODE. FOLLOWUP: He was advised to see his PCP for clearance to resume driving, and clearance to restart work. He was advised to have colonoscopy in the next 7-[address] [facility] surgeon, their office number was provided. He was advised to see his Renal Nurse following that for decision regarding management of atrial fibrillation stroke prophylaxis. Time required to complete this entire discharge, chart review, patient education, prescription orders: 30 minutes. cc: Vishal Lebron MD TD: 07/12/2018 18:31 MTDD
== END 2018-07-12 11:01 | disposition home or self-care (01) | DRG 377 ==
LOC: ED 14:44 → ICU 18:20 → MS2 07-10 19:38
PROVIDERS: ADMIT Internal Medicine; ATTEND Internal Medicine
PROC: 30233K1 Transfusion of Nonautologous Frozen Plasma into Peripheral Vein, Percutaneous Approach (ICD-10-PCS; principal; 2018-07-10)
DX: K52.9 Noninfective gastroenteritis and colitis, unspecified (principal); K57.33 Diverticulitis of large intestine without perforation or abscess with bleeding; J69.0 Pneumonitis due to inhalation of food and vomit; K92.2 Gastrointestinal hemorrhage, unspecified; I48.91 Unspecified atrial fibrillation; J18.9 Pneumonia, unspecified organism; R19.5 Other fecal abnormalities; K52.89 Other specified noninfective gastroenteritis and colitis; R59.9 Enlarged lymph nodes, unspecified; I48.2 Chronic atrial fibrillation; D50.0 Iron deficiency anemia secondary to blood loss (chronic); R55 Syncope and collapse; I10 Essential (primary) hypertension; E27.9 Disorder of adrenal gland, unspecified; Z79.01 Long term (current) use of anticoagulants; Z86.73 Personal history of transient ischemic attack (TIA), and cerebral infarction without residual deficits
CPT/HCPCS: 36415; 70450; 71045; 71275; 74174; 80048; 80053; 81001; 82550; 82553; 83605; 83690; 84484; 85014; 85018; 85025; 85610; 85730; 86850; 86900; 86901; 86920; 87150; 87205; 93005; 93306; 96361; 96374; 99284; A9270; J2270; P9017; Q9967; 80320; 87070; 87086; 99285

== ENCOUNTER 2018-07-29 08:00 | Outpatient (CLI) | payer MEDICARE, OTHER ==
[2018-07-29 14:37] LABS: BASOPHILS # (AUTO) 0.1 10^3/uL (0.0-0.1); BASOPHILS % (AUTO) 2.2 %; EOSINOPHILS # (AUTO) 0.2 10^3/uL (0.0-0.7); EOSINOPHILS % (AUTO) 4.5 %; HGB - HEMOGLOBIN 14.2 g/dL (14.0-18.0); LYMPHOCYTES # (AUTO) 1.3 10^3/uL (1.5-3.5); LYMPHOCYTES % (AUTO) 27.4 %; MEAN CORPUSCULAR HEMOGLOBIN 32.1 pg (27.0-31.0); MEAN CORPUSCULAR HGB CONC 33.4 g/dL (32.0-36.0); MEAN PLATELET VOLUME 7.7 fL (7.4-11.4); MONOCYTES # (AUTO) 0.5 10^3/uL (0.0-1.0); MONOCYTES % (AUTO) 10.4 %; NEUTROPHILS # (AUTO) 2.7 10^3/uL (1.5-6.6); NEUTROPHILS % (AUTO) 55.5 %; PLT - PLATELET COUNT 281 10^3/uL (130-450); RED BLOOD COUNT 4.44 10^6/uL (4.70-6.10); RED CELL DISTRIBUTION WIDTH 13.1 % (12.0-15.0); WHITE BLOOD COUNT 4.9 x10^3/uL (4.8-10.8)
== END 2018-07-29 23:59 | disposition home or self-care (01) ==
LOC: LAB 08:00
PROVIDERS: ATTEND Internal Medicine Gastroenterology
DX: K62.5 Hemorrhage of anus and rectum (principal); R93.5 Abnormal findings on diagnostic imaging of other abdominal regions, including retroperitoneum
CPT/HCPCS: 36415; 85025

== ENCOUNTER 2018-08-19 08:43 | Day surgery (SDC) | payer MEDICARE, OTHER ==
[2018-08-19] MEDS ORDERED: LACTATED RINGERS 1,000 ML IV ONE (08:48)
[2018-08-19] MEDS ORDERED: MIDAZOLAM 2 MG/2 ML VIAL IVP ONE (10:11)
[2018-08-19] MEDS ORDERED: fentaNYL 250 MCG/5 ML VIAL IVP ONE (10:11)
[2018-08-19 11:19] VITALS: BP 119/77
== END 2018-08-19 08:44 | disposition home or self-care (01) ==
LOC: SDS 08:43
PROVIDERS: ATTEND Internal Medicine Gastroenterology
PROC: 0DBN8ZZ Excision of Sigmoid Colon, Via Natural or Artificial Opening Endoscopic (ICD-10-PCS; principal; 2018-08-19 10:00)
DX: K63.5 Polyp of colon (principal); K57.30 Diverticulosis of large intestine without perforation or abscess without bleeding; E27.9 Disorder of adrenal gland, unspecified; I10 Essential (primary) hypertension; D64.9 Anemia, unspecified; D68.9 Coagulation defect, unspecified; Z79.82 Long term (current) use of aspirin; Z87.891 Personal history of nicotine dependence; Z86.73 Personal history of transient ischemic attack (TIA), and cerebral infarction without residual deficits
CPT/HCPCS: 45380; J3010; J7120

== ENCOUNTER 2019-11-10 12:34 | Outpatient (CLI) | payer MEDICARE, OTHER ==
--- NOTE | 2019-11-10 14:22 | XRAY Report ---
PROCEDURE: Chest 2 View X-Ray INDICATIONS: OTH SYMPTOMS AND SIGNS INVOLVING THE CIRC AND RESP TECHNIQUE: 2 view(s) of the chest. COMPARISON: Chest x-ray, 07/10/2018 and 07/09/2018; chest CT angiogram, 07/09/2018 there is. FINDINGS: Surgical changes and devices: A cardiac pace pacing device is noted. Lungs and pleura: Chronic right hemidiaphragm elevation. There are 2 calcified nodular densities in the left upper lung zone, unchanged, compatible with pleural plaques in seen on the comparison CT. No pleural effusions or pneumothorax. No acute pulmonary opacities. Mediastinum: Mediastinal contours are normal. Heart size is normal. Bones and chest wall: No suspicious bony abnormalities. Soft tissues appear unremarkable. IMPRESSION: 1. No acute cardiopulmonary disease. 2. Calcified pleural plaques left hemithorax. Reviewed by: Adriana Gamboa MD on 11/10/2019 2:21 PM PDT Approved by: Adriana Gamboa MD on 11/10/2019 2:21 PM PDT Station ID: [id number]
== END 2019-11-10 12:35 | disposition home or self-care (01) ==
LOC: DI 12:34
PROVIDERS: ATTEND Internal Medicine
DX: J92.9 Pleural plaque without asbestos (principal)
CPT/HCPCS: 71046